=== PATIENT | female | born 1950 | race Caucasian/White ===

== ENCOUNTER 2019-08-31 19:26 | Emergency (ER) | payer MEDICARE ==
[~2019-08-31] VITALS: Ht 154.9 cm; Wt 65.0 kg
--- NOTE | 2019-08-31 19:29 | NUR ---
SUDDEN ONSET OF DIZZYNESS WITH N/V AROUND 1700. STATES CONTINUED DIZZYNESS BUT NO LONGER VOMITING. NAUSEA MUCH IMPROVED AFTER 4MG OF ZOFRAN. PT WITH HX OF VERTIGO BUT STATES HAS NOT HAD ANY SYMPTOMS FOR ABOUT 15 YEARS. PT DENIES CHEST PAIN AND SOB WITH DIZZYNESS. DOES STATES SOME BILATERAL ARM TINGLING THAT HAS SINCE RESLOVED. DENIES WEAKNESS AND SPEECH ISSUES. IV STARTED BY [facility]. EKG COMPLETED BY TECH. PT ON CONT PULSE AND BP. AWIATING EVAL AND ORDERS.
--- NOTE | 2019-08-31 19:56 | NUR ---
Report to soledad Motta.
--- NOTE | 2019-08-31 20:10 | NUR ---
REPORT RECEIVED AND CARE ASSUMED. PT WAITING FOR ERP EVAL. PT STATES INTERMITTENT DIZZINESS, MOSTLY WHEN MOVING. ASSISTED TO BEDSIDE COMMODE. NO FURTHER NEEDS EXPRESSED. CALL LIGHT IN REACH. NSR ON MONITOR WITH VSS.
--- NOTE | 2019-08-31 21:09 | NUR ---
ERP AT BEDSIDE TO EVAL.
[2019-08-31 21:30] LABS: BASOPHILS # (AUTO) 0.04 x10^3/uL (0-0.1); BASOPHILS % (AUTO) 1 % (0-1); EOSINOPHILS # (AUTO) 0.11 x10^3/uL (0-0.4); EOSINOPHILS % (AUTO) 1 % (1-7); LYMPHOCYTES # (AUTO) 1.13 x10^3/uL (1-3.4); LYMPHOCYTES % (AUTO) 12 % (22-44); MD NO; MEAN CORPUSCULAR HEMOGLOBIN 30.3 pg (27.0-34.8); MEAN CORPUSCULAR HGB CONC 33.3 g/dL (32.4-35.8); MEAN PLATELET VOLUME 7.7 fL (7.4-10.4); MONOCYTES # (AUTO) 0.83 x10^3/uL (0.2-0.8); MONOCYTES % (AUTO) 9 % (2-9); NEUTROPHILS # (AUTO) 7.43 x10^3/uL (1.8-6.8); NEUTROPHILS % (AUTO) 78 % (42-75); PLATELET COUNT 280 x10^3/uL (130-400); RED BLOOD COUNT 4.94 x10^6/uL (3.82-5.3); RED CELL DISTRIBUTION WIDTH 13.9 % (9.6-15.2)
[2019-08-31 21:43] LABS: ALANINE AMINOTRANSFERASE 28 U/L (12-78); ALBUMIN 3.9 g/dL (3.4-5.0); ANION GAP 10 mmol/L (5-15); CALCIUM 9.1 mg/dL (8.5-10.1); CHLORIDE 103 mmol/L (98-107)
[2019-08-31 21:48] LABS: ALKALINE PHOSPHATASE 74 U/L (45-117); BILIRUBIN,TOTAL 0.6 mg/dL (0.2-1.0); TOTAL PROTEIN 7.8 g/dL (6.4-8.2); TROPONIN I < 0.015 ng/mL (0.000-0.045)
[2019-08-31] MEDS ORDERED: POTASSIUM CHLORIDE 20 MEQ TAB.ER.PRT PO ONE (22:00)
[2019-08-31] MEDS ORDERED: POTASSIUM CHLORIDE 20 MEQ TAB.ER.PRT ONE (22:01)
[2019-08-31 22:11] VITALS: BP 137/84
--- NOTE | 2019-08-31 22:11 | NUR ---
pt medicated per JAN. Chart up for recheck. Awaiting further dispo.
== END 2019-08-31 23:01 | disposition home or self-care (01) ==
LOC: ED 22:45
DX: R42 Dizziness and giddiness (principal); R11.2 Nausea with vomiting, unspecified; E87.6 Hypokalemia; R07.89 Other chest pain; I10 Essential (primary) hypertension; E78.00 Pure hypercholesterolemia, unspecified; J45.909 Unspecified asthma, uncomplicated; Z87.891 Personal history of nicotine dependence
CPT/HCPCS: 36415; 71045; 80053; 83690; 84484; 85025; 93005; 99284